=== PATIENT | male | born 1960 | race Two or more races ===

== ENCOUNTER 2018-06-14 21:51 | Emergency (ER) | payer MEDICARE ==
[~2018-06-14] VITALS: Ht 170.2 cm; Wt 79.4 kg
[2018-06-14 22:25] VITALS: BP 149/72
--- NOTE | 2018-06-14 22:34 | PHYS DOC ---
Adult General Chief Complaint Chief Complaint: FOOT INJURY PAIN HPI HPI Patient is a 57 year old mmale who presents to the emergency room with complaints of stepping on a nail at about 9:30 this evening. Patient reports mild discomfort and a small puncture wound to the plantar surface proximal to the first toe. He states that his last tetanus was over 5 years ago and that he needs a tetanus shot. Currently he rates his pain as a 0 out of 10 on the pain scale. Review of Systems Review of Systems Constitutional: Denies fever or chills [] Musculoskeletal: Denies foot or joint pain [] Integument: Denies rash, reports puncture wound to plantar surface of left foot proximal to the 1st toe Neurologic: Denies focal weakness or sensory changes [] All other systems were reviewed and found to be within normal limits, except as documented in this note. Current Medications Current Medications Current Medications Medications (Trade) Dose Ordered Sig/Isa Start Time Stop Time Status Last Admin Dose Admin Diphtheria/ Tetanus/Acell Pertussis (Boostrix) 0.5 ml ONCE ONCE 06/14/18 23:00 06/14/18 23:01 DC 06/14/18 23:14 0.5 ML Neomycin/ Polymyxin/ Bacitracin (Triple Antibiotic Ointment) 1 pkt 1X ONCE 06/14/18 23:00 06/14/18 23:01 DC 06/14/18 23:12 1 PKT Allergies Allergies Allergies Coded Allergies Type Severity Reaction Last Updated Verified No Known Drug Allergies 06/14/18 No Physical Exam Physical Exam Constitutional: Well developed, well nourished, no acute distress, non-toxic appearance. [] HENT: Normocephalic, atraumatic, bilateral external ears normal, nose normal. [] Eyes: PERRLA, conjunctiva normal, no discharge. [] Skin: Warm, dry, 2 mm puncture wound to plantar surface of left foot proximal to the 1st toe, no drainage or bleeding. Extremities: no cyanosis, no clubbing, ROM intact, no edema; tenderness to palpation of the left foot proximal to first toe Neurologic: Alert and oriented X 3, normal motor function, normal sensory function, no focal deficits noted. [] Psychologic: Affect normal, judgement normal, mood normal. [] Current Patient Data Vital Signs Vital Signs Date Time Temp Pulse Resp B/P (MAP) Pulse Ox O2 Delivery O2 Flow Rate FiO2 06/14/18 22:25 98.2 76 16 149/72 (97) 98 Room Air 98.2 EKG EKG [] Radiology/Procedures Radiology/Procedures xray negative for any bony deformity read by Dr. Alonso[] Course & Med Decision Making Course & Med Decision Making Pertinent Labs and Imaging studies reviewed. (See chart for details) Dx: puncture wound of left foot xray was negative for any acute findings. PT was given Dtap and wound was irrigated by nurse before antibiotic ointment and bandage were applied. Rx for keflex written, may take tylenol or ibuprofen as needed for pain. Follow up with primary care doctor if symptoms persist, return to ER if fever, redness, swelling, or worsening pain develop. Pt and his son verbalized an understanding of discharge instructions, medications, follow up, and return to ED instructions and were in agreement with POC. [] Dragon Disclaimer Dragon Disclaimer This electronic medical record was generated, in whole or in part, using a voice recognition dictation system. Departure Departure Impression: Primary Impression: Puncture wound of left foot excluding toes without complication Disposition: 01 HOME, SELF-CARE Condition: STABLE Referrals: NO PCP (PCP) Patient Instructions: Puncture Wound, [id number] Additional Instructions: Fill prescription and use as directed. You may take tylenol or ibuprofen as needed for pain. Follow up with primary care doctor if symptoms persist, return to ER if fever, redness, swelling, or worsening pain develop. Scripts Cephalexin (CEPHALEXIN) 500 Mg Tablet 1 TAB PO QID, #40 TAB 0 Refills Prov: ANNY ANDERSON APRN 06/14/18 Attending Co-Sign Attending Co-Sign The patient was not seen by me. The [facility] chart was reviewed. The case was discussed. I agree with the plan of care. Problem Qualifiers Primary Impression: Puncture wound of left foot excluding toes without complication Encounter type: initial encounter Qualified Codes: S91.332A - Puncture wound without foreign body, left foot, initial encounter ANNY ANDERSON APRN Jun 14, 2018 22:34 NINFA ALONSO MD Jun 17, 2018 14:34
[2018-06-14] MEDS ORDERED: DIPHTH,PERTUSS(ACELL),TET TOX 0.5 ML DISP.SYRIN. VAX IM ONE (23:00)
[2018-06-14] MEDS ORDERED: NEOMY/BACITR/POLYMYXIN OINT PACKET. TP ONE (23:00)
[2018-06-14] MEDS ORDERED: CEPH500T PO (23:15)
--- NOTE | 2018-06-15 08:00 | RAD ---
Left foot, 3 views, 06/14/2018: HISTORY: Stepped on nail No fracture or dislocation is identified. There is mild degenerative change at the first MTP joint. No radiopaque foreign body is evident in the soft tissues. Scattered arterial calcifications are present. IMPRESSION: No acute bony abnormality is detected. Electronically signed by: Otto Prince MD (06/15/2018 7:56 AM) [facility]
== END 2018-06-14 23:20 | disposition home or self-care (01) ==
LOC: ER 21:51
DX: S91.332A Puncture wound without foreign body, left foot, initial encounter (principal); W45.0XXA Nail entering through skin, initial encounter; Y93.89 Activity, other specified; Y92.89 Other specified places as the place of occurrence of the external cause; Y99.8 Other external cause status
CPT/HCPCS: 73630; 90471; 90715; 99284-25